=== PATIENT | female | born 1960 | race Caucasian/White ===

== ENCOUNTER → 2019-08-16 | Outpatient (CLI) | payer OTHER ==
[~2019-08-16] MED LIST: AMLO10; ATOR20; Avapro300 MG PO; ESCI20 PO; Lyrica50 MG PO; METPHE20 PO; OMEP20ER PO; ONDA4ODT MM; Omeprazole20 M1 PO; Prilosec Otc20 MG PO; SERT100 PO; SUCR1 PO; Zofran Odt4 MG PO
== END | disposition home or self-care (01) ==
LOC: LAB SHORT 07:49 → PLD 07:49
DX: L30.8 Other specified dermatitis (principal)
CPT/HCPCS: 88305

== ENCOUNTER → 2019-10-16 | Outpatient (CLI) | payer OTHER | END | disposition home or self-care (01) | LOC: LAB 12:15 → LAB SHORT 12:15 | DX: N39.0 Urinary tract infection, site not specified (principal); R35.0 Frequency of micturition | CPT/HCPCS: 87077; 87086; 87186 ==

== ENCOUNTER → 2023-03-14 | Outpatient (CLI) | payer OTHER ==
[2023-03-14 14:42] LABS: Source, Urine Clean Catch
[2023-03-14 16:56] LABS: Appearance, Urine Clear (Clear); Bilirubin, Urine Neg (Neg); Blood, Urine Neg (Neg); Color, Urine Yellow (P-Yellow); Glucose Qualitative, Urine Neg (Neg); Ketones, Urine Neg (Neg); Leukocyte Esterase, Urine 2+ (Neg); Nitrite, Urine Neg (Neg); Protein, Urine 1+ (Neg); Urobilinogen, Urine NORM (Normal)
[2023-03-14 17:17] LABS: Bacteria Few /hpf; Red Blood Cells, Urine 0-2 /hpf (0-2); Squamous Epithelial Cells Few /hpf (Few)
== END | disposition home or self-care (01) ==
LOC: LAB SHORT 14:41 → LAB 14:41
PROVIDERS: Internal Medicine
DX: N39.0 Urinary tract infection, site not specified (principal)
CPT/HCPCS: 81001; 87086

== ENCOUNTER 2025-06-03 01:04 | Day surgery (SDC) | payer OTHER ==
[~2025-06-03 01:04] MED LIST changes: -AMLO10; +AMLO10 PO
[2025-06-03 11:00] VITALS: BP 153/81
[2025-06-03] MEDS ORDERED: OXYC5 PO (11:04)
[2025-06-03] MEDS ORDERED: ROSUVASTATIN CA10 MG PO (11:05)
[2025-06-03] MEDS ORDERED: ANORO ELLIPTA1 EACH INH (11:07)
[2025-06-03] MEDS ORDERED: QUET100 PO (11:07)
[2025-06-03 11:26] LABS: Source, Urine Straight Cath
[2025-06-03 11:29] LABS: Color, Urine Yellow (P-Yellow); Glucose Qualitative, Urine Neg (Neg); Ketones, Urine Neg (Neg); Leukocyte Esterase, Urine 1+ (Neg); Protein, Urine 3+ (Neg); Specific Gravity, Urine 1.020 (1.003-1.022); Urobilinogen, Urine 1+ (Normal)
[2025-06-03 11:37] LABS: Bilirubin, Urine 1+ (Neg)
[2025-06-03 11:38] LABS: Red Blood Cells, Urine Not Seen /hpf (0-2)
== END 2025-06-03 11:15 | disposition home or self-care (01) ==
LOC: ATC 01:04
PROVIDERS: Internal Medicine
DX: N39.0 Urinary tract infection, site not specified (principal); M79.7 Fibromyalgia; E83.42 Hypomagnesemia; R91.1 Solitary pulmonary nodule; I10 Essential (primary) hypertension; J43.9 Emphysema, unspecified; F17.200 Nicotine dependence, unspecified, uncomplicated; Z79.899 Other long term (current) drug therapy; Z88.5 Allergy status to narcotic agent; Z88.8 Allergy status to other drugs, medicaments and biological substances
CPT/HCPCS: 81001; 87086; P9612